=== PATIENT | female | born 1980 | race Caucasian/White ===

== ENCOUNTER 2022-11-25 09:59 | Outpatient (CLI) | payer OTHER, SELFPAY ==
--- NOTE | ~2022-11-25 | XR_ITS ---
AP and oblique views of the right ribs Clinical History: Pain Findings: No rib fracture is seen. Osseous alignment is anatomic. Lungs are clear, without focal cons olidation or pleural effusion. Cardiomediastinal contour is within normal limits. Soft tissues are un remarkable. Impression: No rib fracture is seen. Reviewed, dictated and finalized at [facility]. Impression: No rib fracture is seen.
[2022-11-25 11:04] LABS: Basophils Percent Auto 0.5 % (0.2-1.2); Eosinophils Absolute Auto 0.2 K/mm3 (0-0.3); Hematocrit 42.4 % (37.0-47.0); Hemoglobin 14.1 g/dL (12.0-15.0); Immature Granulocyte Absolute 0.02 K/mm3 (0.00-0.031); Immature Granulocyte Percent A 0.3 % (0-0.5); Lymphocytes Absolute Auto 2.32 K/mm3 (0.9-3.2); Lymphocytes Percent Auto 30.1 % (18.3-44.2); Mean Corpuscular HGB Conc 33.3 g/dl (32-36); Mean Corpuscular Hemoglobin 30.7 pg (26-34); Mean Corpuscular Volume 92.4 fl (80-100); Mean Platelet Volume 10.3 fl (7.4-10.4); Monocytes Absolute Auto 0.3 K/mm3 (0.1-0.6); Monocytes Percent Auto 4.2 % (2.6-8.5); Neutrophils Absolute Auto 4.8 K/mm3 (1.3-6.7); Neutrophils Percent Auto 61.9 % (45.5-73.1); Platelet Count Result 427 k/mm3 (150-375); Red Blood Count 4.59 M/mm3 (4.2-5.4); Red Cell Distribution Width 12.4 % (11.5-14.5); White Blood Count 7.7 K/mm3 (4.5-10.0)
[2022-11-25 11:14] LABS: Alanine Aminotransferase 24 U/L (6-35); Alkaline Phosphatase 71 U/L (38-126); Anion Gap 9 mmol/L (8-16); Aspartate Amino Transferase 21 U/L (14-36); Bilirubin,Total 0.6 mg/dL (0.2-1.3); Blood Urea Nitrogen 10 mg/dL (7-17); Calcium 9.3 mg/dL (8.4-10.2); Carbon Dioxide 26 mmol/L (22-30); Chloride 102 mmol/L (98-107); Cholesterol 215 mg/dL (0-200); Estimated Glomerular Filt Rate > 60; Glucose 106 mg/dL (65-110); HDL Direct 84 mg/dL; Potassium 3.9 mmol/L (3.4-5.0); Sodium 137 mmol/L (137-145); Triglycerides 81 mg/dL (<150)
[2022-11-25 11:25] LABS: LDL Cholesterol Direct 103 mg/dL
[2022-11-25 11:39] LABS: Vitamin D 25 Hydroxy 39.8 ng/mL
[2022-11-25 11:42] LABS: Thyroid Stimulating Hormone 0.997 uIU/mL (0.465-4.680)
[2022-11-30 03:50] LABS: Triiodothyronine T3 Free 3.3 pg/mL (2.3-4.2)
== END 2022-11-25 10:00 | disposition home or self-care (01) ==
PROVIDERS: PCP Family Medicine; Visit Provider Nurse Practitioner Adult Health
DX: R07.81 Pleurodynia (principal); Z00.00 Encounter for general adult medical examination without abnormal findings; I10 Essential (primary) hypertension; E55.9 Vitamin D deficiency, unspecified; R53.83 Other fatigue; R53.1 Weakness
CPT/HCPCS: 36415; 71100; 80053; 80061; 82306; 84439; 84443; 84481; 85025

== ENCOUNTER 2023-08-02 09:27 | Outpatient (CLI) | payer OTHER, SELFPAY ==
--- NOTE | ~2023-08-02 | CT_ITS ---
EXAMINATION: CT abdomen w con DATE: 08/02/2023 09:55 INDICATION: Right upper quadrant abdominal pain TECHNIQUE: Computed tomography (CT) of the abdomen and pelvis was performed with 100 CC Omnipaque 350 intravenous contrast. Automated exposure control and iterative reconstruction technique were employe d. Exam dose: 178.53 mGy-cm total exam DLP. COMPARISON: None. FINDINGS: The lung bases are clear of infiltrate or consolidation or mass density. Normal heart size. No pericardial or pleural effusion. The liver, spleen, pancreas, adrenal glands and kidneys appear normal. There is an approximately 3.5 mm medial segment left hepatic cyst. The gallbladder appears normal. No bile duct or pancreatic duct dilatation. No urinary tract calculus or hydroureteronephrosis. Normal caliber of the abdominal aorta. No intraperitoneal or retroperitoneal mass lesion or adenopath y or ascites. No bowel obstruction, bowel wall thickening, pneumatosis or intraperitoneal free air is detected. Small fat-containing umbilical hernia. IMPRESSION: No significant abnormality Ultrasound is more sensitive for detection of cholelithiasis then CT examination. Reviewed, dictated and finalized at [facility] Reviewed, dictated and finalized at [facility] [employer] IMPRESSION: No significant abnormality Ultrasound is more sensitive for detection of cholelithiasis then CT fanny gunderson
== END 2023-08-02 09:28 | disposition home or self-care (01) ==
PROVIDERS: PCP Family Medicine; Visit Provider Nurse Practitioner Adult Health
DX: R10.11 Right upper quadrant pain (principal); R07.81 Pleurodynia
CPT/HCPCS: 74160; Q9967

== ENCOUNTER 2023-10-19 10:15 | Outpatient (RCR) | payer OTHER, SELFPAY ==
--- NOTE | 2023-08-30 11:07 | OPREHPOC ---
Outpatient Therapy Plan of Care This is a Multidisciplinary Plan of Care that may contain components documented by all disciplines (PT, OT, and ST.) PT Problem 1 PT Problem #1 Knowledge Deficit PT Goal 1 Goal 1* indep with HEP 2* good body mechanics with lifting waist/floor height PT Problem 2 PT Problem #2 Pain PT Goal 1 Goal 1* pt report pain rating at worst of 4/10 2* pt report with sleeping, awaken 1x/night due to pain 3* pt not report any tenderness with palpation over R upper abdomen PT Problem 3 PT Problem #3 Impaired Strength PT Goal 1 Goal increase strength to improve stability to trunk and spine 1* pt report able to tolerate working 8 hour shift 2* pt able to perform 20 reps of trunk and hip mat strengthening exercises 3* pt maintain good trunk position with exercises
--- NOTE | 2023-08-30 11:07 | PTOPEVAL1 ---
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 Reported Pain Level Pain Score Self Report Additional Pain Score Comments pain range in the past week 6-7/10; tight, belt like feeling around rib cage, tight muscles; constant pain; increase pain: lifting, twisting, activity; work 8 hours--go home and down for the rest of the day; lie on back; sitting, driving decrease pain: lie on R side with pillow under waist area, heat/ice, ibuprofen PRN but not really help with sleeping-- problems getting comfortable and once asleep, awaken 2x/night due to pain Assessment PT Clinical Summary Karina has the diagnosis of R hip, R rib and trunk pain. She reports onset about 2 years ago, after having a hysterectomy. Pain in neck, trunk and back, and has disrupted her sleeping tolerance and activity level with work, sitting, lifting tolerances. She has been to a chiropractor for ~ 6 visits and they adjusted her ribs, did not help. Frustrated with the pain that is continuing to bother her. 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 Imaging of her trunk and abdomen has been negative. With the evaluation: she has good mobility of her trunk and hips, with tightness over thoracic spine and rounded posture; spasms over thoracic and lumbar areas; area of pain with palpation is R upper abdomen--at distal rib, proximal to her incision. Skilled PT services are indicated for modalities to decrease pain and spasms, therapeutic exercises and activities to increase thoracic mobility and education for home exerci
--- NOTE | 2023-12-27 10:21 | PCPTNOTE ---
Physical Therapy discharge Karina received 6 PT sessions, from August 30 to October 19, 2023. She then stopped attending therapy. Therefore, she will be discharged at this time. The goals were not addressed.
== END 2023-11-28 08:57 | disposition home or self-care (01) ==
LOC: ANHPT 10:15
PROVIDERS: PCP Family Medicine
DX: M25.551 Pain in right hip (principal)
CPT/HCPCS: 97110; 97140; 97162; 97530